=== PATIENT | male | born 1930 | race Caucasian/White ===

== ENCOUNTER → 2018-11-26 12:12 | Outpatient (CLI) | payer MEDICARE, OTHER ==
[~2018-11-26 12:12] MED LIST: BAYER CHEWABLE81 MG PO; BETAPACE 80 MG80 MG PO; FIBRICOR35 MG PO; FLOMAX0.4 MG PO; LOPRESSOR50 MG PO; MULTIPLE VITAMI1 TA1 PO; PRILOSEC20 MG PO; TOPROL XL50 MG PO; ZESTORETIC 20/11 TAB PO
== END | disposition home or self-care (01) ==
LOC: D.HCCARDIO 11:00
PROVIDERS: ATTEND Internal Medicine Cardiovascular Disease
DX: R94.31 Abnormal electrocardiogram [ECG] [EKG] (principal)